=== PATIENT | female | born 1995 | race Caucasian/White ===

== ENCOUNTER → 2019-04-17 17:05 | Outpatient (BNVA) | payer OTHER, SELFPAY | PROVIDERS: Family Provider Nurse Practitioner; PCP Nurse Practitioner; Visit Provider Nurse Practitioner Family | DX: R42 Dizziness and giddiness (principal); R09.89 Other specified symptoms and signs involving the circulatory and respiratory systems | CPT/HCPCS: 80053; 83735; 84443; 85025 ==

== ENCOUNTER → 2020-11-03 16:46 | Outpatient (BNVA) | payer OTHER, SELFPAY | PROVIDERS: Family Provider Nurse Practitioner; PCP Nurse Practitioner; Visit Provider Nurse Practitioner Family | DX: Z00.00 Encounter for general adult medical examination without abnormal findings (principal) | CPT/HCPCS: 86787 ==

== ENCOUNTER → 2021-08-09 14:06 | Outpatient (BNVA) | payer BC, SELFPAY | PROVIDERS: Family Provider Nurse Practitioner; PCP Nurse Practitioner Family; Visit Provider Family Medicine | DX: J02.9 Acute pharyngitis, unspecified (principal) | CPT/HCPCS: 87880 ==

== ENCOUNTER → 2021-11-13 10:39 | Outpatient (BNVA) | payer BC, SELFPAY | PROVIDERS: Family Provider Nurse Practitioner; PCP Nurse Practitioner Family; Visit Provider Family Medicine Adult Medicine | DX: R55 Syncope and collapse (principal); G40.909 Epilepsy, unspecified, not intractable, without status epilepticus; Z98.890 Other specified postprocedural states; Z87.19 Personal history of other diseases of the digestive system; O03.9 Complete or unspecified spontaneous abortion without complication; R42 Dizziness and giddiness | CPT/HCPCS: 80053; 81000; 83036; 84702; 85025 ==

== ENCOUNTER → 2022-06-07 17:22 | Outpatient (BNVA) | payer OTHER, SELFPAY | PROVIDERS: Family Provider Nurse Practitioner; PCP Nurse Practitioner Family; Visit Provider Nurse Practitioner | DX: Z20.2 Contact with and (suspected) exposure to infections with a predominantly sexual mode of transmission (principal) | CPT/HCPCS: 86695; 86696; 87255; 87491; 87591; 87661 ==

== ENCOUNTER → 2022-07-16 09:00 | Outpatient (BNVA) | payer OTHER, SELFPAY | PROVIDERS: Family Provider Nurse Practitioner; PCP Nurse Practitioner Family; Visit Provider Obstetrics & Gynecology | DX: N92.6 Irregular menstruation, unspecified (principal) | CPT/HCPCS: 83036; 83525; 84443 ==

== ENCOUNTER → 2022-08-04 07:48 | Outpatient (BNVA) | payer OTHER, SELFPAY | PROVIDERS: Family Provider Nurse Practitioner; PCP Nurse Practitioner Family; Visit Provider Obstetrics & Gynecology | DX: N97.9 Female infertility, unspecified (principal) | CPT/HCPCS: 76830 ==

== ENCOUNTER → 2022-10-07 13:54 | Outpatient (BNVA) | payer OTHER, SELFPAY | PROVIDERS: Family Provider Nurse Practitioner; PCP Nurse Practitioner Family; Visit Provider Obstetrics & Gynecology | DX: N92.6 Irregular menstruation, unspecified (principal) | CPT/HCPCS: 81025 ==

== ENCOUNTER → 2022-10-08 14:00 | Outpatient (BNVA) | payer OTHER, SELFPAY | PROVIDERS: Family Provider Nurse Practitioner; PCP Nurse Practitioner Family; Visit Provider Obstetrics & Gynecology | DX: O03.9 Complete or unspecified spontaneous abortion without complication (principal); N92.6 Irregular menstruation, unspecified | CPT/HCPCS: 84702 ==

== ENCOUNTER → 2022-10-11 09:05 | Outpatient (BNVA) | payer OTHER, SELFPAY | PROVIDERS: Family Provider Nurse Practitioner; PCP Nurse Practitioner Family; Visit Provider Obstetrics & Gynecology | DX: Z34.91 Encounter for supervision of normal pregnancy, unspecified, first trimester (principal); Z3A.01 Less than 8 weeks gestation of pregnancy | CPT/HCPCS: 76830; 84315 ==

== ENCOUNTER → 2022-11-08 11:20 | Outpatient (BNVA) | payer OTHER, SELFPAY | PROVIDERS: Family Provider Nurse Practitioner; PCP Nurse Practitioner Family; Visit Provider Obstetrics & Gynecology | DX: Z34.00 Encounter for supervision of normal first pregnancy, unspecified trimester (principal) | CPT/HCPCS: 80307; 84315; 85027; 86592; 86762; 86803; 86850; 86900; 87086; 87340; 87806 ==

== ENCOUNTER 2022-11-24 14:53 | Emergency (ER) | payer OTHER, SELFPAY ==
[2022-11-24 15:00] VITALS: BP 120/76; PULSE 83; RESP 16; TEMP 36.7; O2SAT 100; BMI 20.3
[2022-11-24 16:10] LABS: Basophils % 0.2 %; Eosinophils # 0.1 10^3/uL (0.0-0.8); Eosinophils % 0.7 %; Hematocrit 36.7 % (36-47); Lymphocytes # 1.8 10^3/uL (0.8-4.8); Mean Corpuscular HGB Conc 34.1 g/dL (30-55); Mean Corpuscular Hemoglobin 30.4 pg (27-33); Mean Corpuscular Volume 89.3 fl (85-98); Mean Platelet Volume 9.8 fL (7.4-10.4); Monocytes # 0.4 10^3/uL (0.2-0.9); Monocytes % 4.3 %; Neutrophils # 7.49 10^3/uL (1.8-7.7); Neutrophils % 76.4 %; Nucleated Red Blood Cells % 0 %; Platelet Count 221 10^3/cmm (157-399); Red Blood Count 4.11 10^6/uL (3.85-5.65); Red Cell Distribution Width 12.2 % (12.1-15.1)
[2022-11-24 16:25] LABS: Alanine Aminotransferase 13 U/L (0-33); Albumin Level 4.7 g/dL (3.5-5.2); Alkaline Phosphatase 55 U/L (35-105); Anion Gap 13.5 (5-19); Aspartate Amino Transferase 14 U/L (0-32); Blood Urea Nitrogen 10 mg/dL (6-20); Calcium 9.2 mg/dL (8.5-10.5); Carbon Dioxide 26 mmol/L (22-29); Chloride 102 mmol/L (98-107); Glomerular Filtration Rate 191.5 mL/min (90-130); Glucose 88 mg/dL (65-115); Osmolality Calculated 284 mOsm/kg (285-295); Potassium 3.5 mmol/L (3.5-5.1); Sodium 138 mmol/L (136-145); Total Bilirubin 0.2 mg/dL (0.15-1.2); Total Protein 6.7 g/dL (6.6-8.7)
--- NOTE | 2022-11-24 17:10 | USR_ITS ---
PROCEDURE INFORMATION: Exam: US First Trimester, Transabdominal Exam date and time: 11/24/2022 5:22 PM Age: 27 years old Clinical indication: Other: Cramping and abd pain; Gestational age or lmp: 12w 4d; ; Additional info: Abd pain with cramping, 10 weeks preg LABS AND CLINICAL REPORTS: Last menstrual period start date: 08/28/2022 Gestational age (Established): 12 w 4 d Estimated due date (Established): 06/04/2023 TECHNIQUE: Imaging protocol: Real-time transabdominal obstetrical ultrasound of the maternal pelvis and a first trimester , less than 14 weeks 0 days, with image documentation. COMPARISON: US transvaginal [id number] 10/11/2022 9:11 AM FINDINGS: Gestation: There is a single live intrauterine gestation. Breech presentation. Embryonic/ heart rate: 150 bpm Extra-embryonic membranes/Placenta: Unremarkable. Anterior placenta is cm/s is No subchorionic bleed. Amniotic fluid: Amniotic fluid and extra-amniotic fluid is normal for gestational age. BIOMETRY: Not performed on this exam. See prior study report. MATERNAL: Uterus: Uterus measures 8.62 cm x 12.01 cm x 8.92 cm. Cervix: Cervical length measures 3.83 cm. Right ovary/adnexa: Obscured by bowel gas. Left ovary/adnexa: Obscured. Intraperitoneal space: No intraperitoneal free fluid. US/US OB <= 14 weeks fetus [id number] IMPRESSION: heartbeat and activity was noted. No gross abnormalities. Limited exam. See prior study for biometric measurements.
--- NOTE | 2022-11-24 17:13 | W.ED.ABDPA2 ---
HPI - Abdominal Pain General: Chief Complaint: Abdominal Pain Stated Complaint: abd pain 12 weeks preg Time Seen by Provider: 11/24/22 17:08 History of Present Illness: 27-year-old female comes in today with left upper quadrant abdominal pain radiating to the lower part of the abdomen. Patient reports that the pain started this morning. And did have 1 instance of nausea but no vomiting. Patient is approximately 12 weeks . This is patient's second with no live births. Review of Systems General: Reports: 10 or more systems reviewed and unremarkable except in HPI and below GI: Reports: abdominal pain (Left upper quadrant) PFS ED PFSH: Medical History Miscarriage Near syncope Seizure disorder follows with [facility] Neuro Surgical History History of mandibular surgery Hx of hernia repair Family History Family/Other Hypertension Denies family history of Colon cancer Ovarian cancer Diabetes Heart disease Hypercholesteremia Breast cancer Uterine cancer Thyroid disease Stroke Physical Exam Const: COMMON NORMALS: alert HENMT: COMMON NORMALS: normocephalic HEAD & SCALP: normocephalic Neck/C-Spine: COMMON NORMALS: full ROM Resp: COMMON NORMALS: normal respiratory effort and clear to auscultation bilaterally AUSCULTATION: clear to auscultation bilaterally Cardio: COMMON NORMALS: regular rate and regular rhythm RATE: regular rate RHYTHM: regular rhythm GI: AUSCULTATION: Yes normoactive bowel sounds PALPATION: Yes Tenderness to palpation present (GI) Details: LUQ : COMMON NORMALS: Yes no CVA tenderness BLADDER/KIDNEY EXAM: Yes no CVA tenderness Back/Pelvis: COMMON NORMALS: no CVA tenderness and thoracic and lumbar spine normal to inspection Extremity: COMMON NORMALS: no pedal edema Neuro: SENSORIUM/ORIENTATION: Yes alert Skin: COMMON NORMALS: turgor normal GENERAL SKIN EXAM: turgor normal Course Vital Signs: Vital signs: Vital Signs Temperature 98.0 F 11/24/22 15:00 Pulse Rate 83 11/24/22 15:00 Respiratory Rate 16 11/24/22 15:00 Blood Pressure 120/76 11/24/22 15:00 Pulse Oximetry 100 11/24/22 15:00 Oxygen Delivery Me thod Room Air 11/24/22 15:00 MDM - Abdominal Pain Medical Decision Making 27-year-old female comes in with left upper quadrant abdominal pain. On exam abdomen soft with some tenderness in the left upper quadrant. No CVA tenderness is noted. Lungs clear to auscultation. Skin is warm and dry. Vital signs are normal. Differential diagnosis includes threatened , gastritis, nausea and vomiting secondary to , UTI, gastroenteritis, constipation. Ultrasound noted today good heartbeat and activity without any gross abnormalities noted. CBC and CMP were unremarkable. Urinalysis was clean. I suspect the patient might have some gastritis secondary to her . Recommended trial of famotidine for discomfort. Recommend Tylenol and otherwise ice or heat for further pain relief. No signs of severe illness, patient was stable and discharged home with monitoring for worsening symptoms and to return as needed. Patient stated understanding and agreed to plan. Lab Data 11/24/22 15:55 11/24/22 15:55 Labs/Radiology: Radiology Impressions Ultrasound 11/24/22 17:10 IMPRESSION: heartbeat and activity was noted. No gross abnormalities. Limited exam. See prior study for biometric measurements. Laboratory Results WBC 9.80 10^3/uL (3.29-11.43) 11/24/22 15:55 RBC 4.11 10^6/uL (3.85-5.65) 11/24/22 15:55 Hgb 12.50 g/dL (11.27-16.99) 11/24/22 15:55 Hct 36.7 % (36-47) 11/24/22 15:55 MCV 89.3 fl (85-98) 11/24/22 15:55 MCH 30.4 pg (27-33) 11/24/22 15:55 MCHC 34.1 g/dL (30-55) 11/24/22 15:55 RDW 12.2 % (12.1-15.1) 11/24/22 15:55 Plt Count 221 10^3/cmm (157-399) 11/24/22 15:55 MPV 9.8 fL (7.4-10.4) 11/24/22 15:55 Neut % (Auto) 76.4 % 11/24/22 15:55 Lymph % (Auto) 18.0 % 11/24/22 15:55 [place] % (Auto) 4.3 % 11/24/22 15:55 Eos % (Auto) 0.7 % 11/24/22 15:55 Baso % (Auto) 0.2 % 11/24/22 15:55 Neut # (Auto) 7.49 10^3/uL (1.8-7.7) 11/24/22 15:55 Lymph # (Auto) 1.8 10^3/uL (0.8-4.8) 11/24/22 15:55 [place] # (Auto) 0.4 10^3/uL (0.2-0.9) 11/24/22 15:55 Eos # (Auto) 0.1 10^3/uL (0.0-0.8) 11/24/22 15:55 Baso # (Auto) 0.0 10^3/uL (0.0-0.1) 11/24/22 15:55 Nucleated RBC % (auto) 0 % 11/24/22 15:55 Nucleated RBCs # 0.0 /100WBC 11/24/22 15:55 Sodium 138 mmol/L (136-145) 11/24/22 15:55 Potassium 3.5 mmol/L (3.5-5.1) 11/24/22 15:55 Chloride 102 mmol/L (98-107) 11/24/22 15:55 Carbon Dioxide 26 mmol/L (22-29) 11/24/22 15:55 Anion Gap 13.5 (5-19) 11/24/22 15:55 BUN 10 mg/dL (6-20) 11/24/22 15:55 Creatinine 0.4 mg/dL (0.5-0.9) L 11/24/22 15:55 GFR Calculation 191.5 mL/min (90-130) H 11/24/22 15:55 Glucose 88 mg/dL (65-115) 11/24/22 15:55 Calculated Osmolality 284 mOsm/kg (285-295) L 11/24/22 15:55 Calcium 9.2 mg/dL (8.5-10.5) 11/24/22 15:55 Total Bilirubin 0.2 mg/dL (0.15-1.2) 11/24/22 15:55 AST 14 U/L (0-32) 11/24/22 15:55 ALT 13 U/L (0-33) 11/24/22 15:55 Alkaline Phosphatase 55 U/L (35-105) 11/24/22 15:55 Total Protein 6.7 g/dL (6.6-8.7) 11/24/22 15:55 Albumin 4.7 g/dL (3.5-5.2) 11/24/22 15:55 Globulin 2.0 g/dL (1.3-4.6) 11/24/22 15:55 Urine Color Yellow (Yellow) 11/24/22 17:49 Urine Appearance Cloudy (CLEAR) A 11/24/22 17:49 Urine pH 8 (5-7) H 11/24/22 17:49 Ur Specific [place] 1.015 (1.005-1.030) 11/24/22 17:49 Urine Protein Neg (Negative) 11/24/22 17:49 Urine Glucose (UA) Norm (Normal) 11/24/22 17:49 Urine Ketones Negative (Negative) 11/24/22 17:49 Urine Blood Neg (Negative) 11/24/22 17:49 Urine Nitrate Negative (Negative) 11/24/22 17:49 Urine Bilirubin Neg (Negative) 11/24/22 17:49 Prot Sulfosalicylic Acd Negative (Negative) 11/24/22 17:49 Urine Urobilinogen Norm mg/dL (Negative) 11/24/22 17:49 Ur Leukocyte Esterase Negative (Negative) 11/24/22 17:49 Urine RBC 0-4 /hpf (0-2) H 11/24/22 17:49 Urine WBC 0-4 /hpf (0-5) H 11/24/22 17:49 Ur Squamous Epith Cells 0-4 /hpf (0-5) H 11/24/22 17:49 Amorphous Sediment 2+ /hpf 11/24/22 17:49 Urine Bacteria Trace /hpf (NONE) 11/24/22 17:49 Discharge Plan Discharge Patient Disposition: Home Clinical Impression: Abdominal pain in Qualifiers: Trimester: first trimester Qualified Code(s): O26.891 - Other specified related conditions, first trimester Condition: Stable Prescriptions: No Action folic acid 1 mg tablet 1 mg PO DAILY levetiracetam [Keppra XR] 500 mg tablet extended release 24 hr 3,000 mg PO QDAY lamotrigine [Lamictal XR] 200 mg tablet extended release 24hr 400 mg PO QDAY lamotrigine [Lamictal XR] 100 mg tablet extended release 24hr 100 mg PO DAILY fluoxetine [Prozac] 20 mg capsule 20 mg PO DAILY valacyclovir 1 gram tablet 1,000 mg PO TID 7 Days Qty: 21 0RF prenat.vits,carlos,[id number] Tablet 1 tab PO DAILY metformin 500 mg tablet extended release 24 hr 500 mg PO BID Qty: 60 6RF Rx Instructions: Take one tablet daily for a month, then increase to 2 tablets daily. Discharge Orders: Discharge ED (Routine); Ordered 11/24/22 Ordered By: Montana Saini Referrals: Debbie Rivera APN [Primary Care Provider] - Discharge Diet: Usual diet Discharge Activity: Increase activity as tolerated Patient Instructions: Abdominal Pain (ED) Activity Restrictions/Additional Instructions: Drink plenty of water and fluids. Use acetaminophen as needed for pain. Use ice or heat for further pain relief. Increase activity as tolerated. Follow-up with primary care for further instructions. Return to ED for worsening symptoms such as inability to hold fluids down, blood in vomit or stool, fever greater than 100.4, or new concerns. 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
[2022-11-24 18:19] LABS: Add Urine Culture? No; Add Urine Microscopic? YES; Amorphous Sediment Urine 2+ /hpf; Bacteria Urine TRACE /hpf; Bilirubin Urine Neg (Negative); Blood Urine Neg (Negative); Glucose Urine UA Norm (Normal); Ketones Urine Negative (Negative); Leukocyte Esterase Urine Negative (Negative); Nitrate Urine Negative (Negative); Protein Urine Neg (Negative); RBC Urine 0-4 /hpf (0-2); Specific Gravity, Urine 1.015 (1.005-1.030); Squamous Epithelial Cell Urine 0-4 /hpf (0-5); Sulfosalicylic Acid Urine Negative (Negative); Urine Appearance Cloudy (CLEAR); Urine Color Yellow (Yellow); Urobilinogen Urine Norm (Negative); WBC Urine 0-4 /hpf (0-5); pH Urine 8 (5-7)
== END 2022-11-24 18:43 | disposition home or self-care (01) ==
PROVIDERS: Emergency Medicine; Emergency Provider Nurse Practitioner Family; PCP Nurse Practitioner Family
DX: O26.891 Other specified pregnancy related conditions, first trimester (principal); R10.12 Left upper quadrant pain; Z3A.12 12 weeks gestation of pregnancy
CPT/HCPCS: 36415; 76801; 80053; 81001; 84702; 85025; 99284

== ENCOUNTER → 2022-12-20 11:12 | Outpatient (BNVA) | payer OTHER, SELFPAY | PROVIDERS: PCP Nurse Practitioner Family; Visit Provider Nurse Practitioner Women's Health | DX: Z34.00 Encounter for supervision of normal first pregnancy, unspecified trimester (principal) | CPT/HCPCS: 82105; 84315; 87491; 87591 ==

== ENCOUNTER → 2023-01-17 09:27 | Outpatient (BNVA) | payer OTHER, SELFPAY | PROVIDERS: PCP Nurse Practitioner Family; Visit Provider Nurse Practitioner Women's Health | DX: Z34.92 Encounter for supervision of normal pregnancy, unspecified, second trimester (principal); Z3A.22 22 weeks gestation of pregnancy | CPT/HCPCS: 76805 ==

== ENCOUNTER → 2023-02-14 10:41 | Outpatient (BNVA) | payer OTHER, SELFPAY | PROVIDERS: Family Provider Nurse Practitioner; PCP Nurse Practitioner Family; Visit Provider Nurse Practitioner Women's Health | DX: Z34.00 Encounter for supervision of normal first pregnancy, unspecified trimester (principal); Z3A.00 Weeks of gestation of pregnancy not specified | CPT/HCPCS: 82950; 84315; 85025 ==

== ENCOUNTER 2023-02-16 19:49 | Emergency (ER) | payer OTHER, SELFPAY ==
[2023-02-16 19:56] VITALS: BP 130/81; PULSE 76; RESP 16; TEMP 36.6; O2SAT 97; BMI 22.8
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
[2023-02-16 22:38] LABS: Hepatitis A Antibody IgM Non-Reactive (Nonreactive); Hepatitis B Core IgM Non-Reactive (Nonreactive); Hepatitis B Surface Antigen Non-Reactive (Nonreactive); Hepatitis C Virus Antibody Non-Reactive (Nonreactive)
[2023-03-03 10:32] LABS: HIV 1 & 2 Antibody Non-Reactive (Non-Reactiv); HIV 1 & 2 Antigen Non-Reactive (Non-Reactiv)
== END 2023-02-16 20:30 | disposition home or self-care (01) ==
PROVIDERS: Emergency Provider Nurse Practitioner Family; PCP Nurse Practitioner Family
DX: Z77.21 Contact with and (suspected) exposure to potentially hazardous body fluids (principal); Y99.0 Civilian activity done for income or pay; Y08.89XA Assault by other specified means, initial encounter; Y92.239 Unspecified place in hospital as the place of occurrence of the external cause
CPT/HCPCS: 36415; 80074; 87806; 99283

== ENCOUNTER → 2023-04-13 11:52 | Outpatient (BNVA) | payer SELFPAY | PROVIDERS: PCP Nurse Practitioner Family; Visit Provider Obstetrics & Gynecology | DX: Z34.00 Encounter for supervision of normal first pregnancy, unspecified trimester (principal); Z3A.00 Weeks of gestation of pregnancy not specified | CPT/HCPCS: 81000 ==

== ENCOUNTER → 2023-04-19 10:07 | Outpatient (BNVA) | payer OTHER, SELFPAY | PROVIDERS: PCP Nurse Practitioner Family; Visit Provider Obstetrics & Gynecology | DX: Z34.93 Encounter for supervision of normal pregnancy, unspecified, third trimester (principal); Z3A.35 35 weeks gestation of pregnancy | CPT/HCPCS: 76816 ==

== ENCOUNTER → 2023-04-25 08:02 | Outpatient (BNVA) | payer OTHER, SELFPAY | PROVIDERS: PCP Nurse Practitioner Family; Visit Provider Nurse Practitioner Women's Health | DX: Z34.00 Encounter for supervision of normal first pregnancy, unspecified trimester (principal); Z3A.00 Weeks of gestation of pregnancy not specified | CPT/HCPCS: 84315; 87086 ==

== ENCOUNTER → 2023-05-09 08:30 | Outpatient (BNVA) | payer OTHER, SELFPAY | PROVIDERS: PCP Nurse Practitioner Family; Visit Provider Obstetrics & Gynecology | DX: Z34.80 Encounter for supervision of other normal pregnancy, unspecified trimester (principal); Z3A.00 Weeks of gestation of pregnancy not specified | CPT/HCPCS: 84315; 87081 ==

== ENCOUNTER 2023-05-22 18:08 | Outpatient (CLI) | payer OTHER, SELFPAY ==
[2023-05-22 17:58] VITALS: BMI 25.9
[2023-05-22 18:12] VITALS: RESP 16
[2023-05-22 18:35] VITALS: BP 133/89; PULSE 66
[2023-05-22 18:52] VITALS: BP 143/90; PULSE 68
== END 2023-05-22 19:00 | disposition home or self-care (01) ==
LOC: OPOB 18:09 → OBGYN 18:11
PROVIDERS: PCP Nurse Practitioner Family; Visit Provider Obstetrics & Gynecology
DX: O26.899 Other specified pregnancy related conditions, unspecified trimester (principal); Z3A.00 Weeks of gestation of pregnancy not specified; R10.9 Unspecified abdominal pain
CPT/HCPCS: 59025; 99211

== ENCOUNTER 2023-05-27 10:03 | Inpatient (IN) | payer OTHER, SELFPAY ==
[2023-05-27] VITALS (79 sets, daily range): BP systolic 96–147; BP diastolic 56–92; PULSE 56–97; RESP 16–18; TEMP 35.8–36.1; O2SAT 96–99; BMI 25.8
[2023-05-27] MEDS: lactated ringers 1,000 ML 999 ML IV ×2 (10:43→11:57)
[2023-05-27 10:55] LABS: Basophils % 0.2 %; Eosinophils % 0.2 %; Hematocrit 41.4 % (36-47); Lymphocytes # 1.5 10^3/uL (0.8-4.8); Lymphocytes % 11.5 %; Mean Corpuscular HGB Conc 35.7 g/dL (30-55); Mean Corpuscular Hemoglobin 31.4 pg (27-33); Mean Corpuscular Volume 87.7 fl (85-98); Mean Platelet Volume 11.2 fL (7.4-10.4); Monocytes # 0.4 10^3/uL (0.2-0.9); Monocytes % 3.4 %; Neutrophils # 10.56 10^3/uL (1.8-7.7); Neutrophils % 84.1 %; Nucleated Red Blood Cells % 0 %; Platelet Count 180 10^3/cmm (157-399); Red Blood Count 4.72 10^6/uL (3.85-5.65); Red Cell Distribution Width 12.3 % (12.1-15.1); White Blood Count 12.56 10^3/uL (3.29-11.43)
[2023-05-27] MEDS: fentaNYL 50 mcg/mL INJ 2mL IVP (10:58)
[2023-05-27] MEDS: ROPivacaine syringe 100 MG/50 ML SYRINGE 10 MG EPIDURAL (11:49)
--- NOTE | 2023-05-27 11:57 | ANES.PROC ---
Anesthesia Procedures Procedure/Date: 05/27/23 Epidural: Time Out Performed: Yes Consents Signed: Procedure Consent Consent: requested by attending/covering physician, from patient, risks and benefits reviewed and patient agrees to proceed Lumbar Level: L3-L4 Epidural position: sitting Epidural procedure: sterile prep of area, 1% lidocaine to numb the area, 18 g needle, neg for paresthesia, test dose given, 1.5% xylocaine 1:200k epi (5cc), 0.2% Ropivacaine bolus ml (4cc and Fentanyl 100mcg), placed PCEA, no systemic response, sterile dressing applied, L.U.D. no apparent complications and 0.2% Ropiavacaine @ mls/hr (13cc/hour. Pt tolerated well)
--- NOTE | 2023-05-27 12:58 | PM.OPHPUD ---
Labor & Delivery H&P Update Date of Procedure: May 27, 2023 Date H&P Performed: 05/23/23 H&P update information: I have reviewed H&P completed within last 30 days, I have examined patient prior to procedure and Changes to prior documentation as noted here (/90%/-1/VX/IM) Admission Diagnosis:
[2023-05-27] MEDS: oxytocin 30 UNIT/500 ML BAG IV (14:09)
[2023-05-27] MEDS: ROPivacaine syringe 100 MG/50 ML SYRINGE 13 MG EPIDURAL ×2 (15:32→18:40)
[2023-05-27] MEDS: dextrose 5%-lactated ringers 1,000 ML 125 ML IV (18:37)
[2023-05-27] MEDS: ondansetron 2 mg/ML SDV 2 mL 4 MG IVP (19:51)
--- NOTE | 2023-05-27 21:50 | P.PN_ITS ---
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 Subjective 2 Subjective: Interval history: fetus PETTY, +2 station patient has been pushing x more than two hours + maternal exhaustion Vacuum extractor applied mild traction used through two uterine contractions brought head to perineum shoulders delivered easily vigorous male infant cord gases and blood obtained normal placenta and cord second-degree perineal laceration repaired in layers EBL: 400 cc no complications Labor: Station: 0 Amniotic Membrane Status: Ruptured Monitor Mode: External Contraction Pattern: Regular Status: Category I Vitals/I&O/Wt Last Vital Signs Temp 97.9 F 05/28/23 10:26 Pulse 81 05/28/23 10:26 Resp 15 05/28/23 10:26 BP 122/78 05/28/23 10:26 Pulse Ox 95 05/28/23 04:50 O2 Del Method Room Air 05/27/23 10:06 Weight last 48 hrs Weight 170 lb Physical Exam 2 Urinary Catheter Management: Elkins Latex: Cath Placed During This Visit: yes, but has since been removed by the nurse Reason for Continuing Indwelling Catheter: Decision to DC Catheter Urinary Catheter Date of Insertion: 05/27/23 Urinary Catheter Time of Insertion: 12:55 Date Urinary Catheter Removed: 05/27/23 Time Urinary Catheter Discontinued: 18:45 Data 05/28/23 10:40 A&P Assessment and plan (1) Vaginal delivery: vacuum-assisted vaginal delivery (2) Second degree perineal laceration: repaired Attestations 2 Medical Necessity Statement*: patient at term, s/p vaginal delivery Coding Level of Care Code Acute Code for Chg Fwd Diagnoses Vaginal delivery O80 Second degree perineal laceration O70.1 Time Spent (min) 90
--- NOTE | 2023-05-27 21:55 | PM.DELIVERY ---
Delivery Note: Date of delivery: May 27, 2023 Pre-delivery diagnoses: 38 w 6 d active labor Post-delivery diagnoses: 38 w 6 d active labor vacuum-assisted vaginal delivery repair of second-degree perineal laceration Procedure: vacuum-assisted vaginal delivery repair of second-degree perineal laceration Op report anesthesia: Epidural Delivering Physician: Ralf Burnett MD Findings: fetus PETTY, +2 station patient has been pushing x more than two hours + maternal exhaustion Vacuum extractor applied mild traction used through two uterine contractions brought head to perineum shoulders delivered easily vigorous male cord gases and blood obtained normal placenta and cord second-degree perineal laceration repaired in layers EBL: 400 cc no complications Pre-Delivery Course: normal labor course Delivery: vacuum-assisted vaginal delivery Post-Delivery Status: good History History History 2 Term 0 0 Miscarriages/Ectopic 1 Living Children 0 A&P Assessment and plan (1) Vaginal delivery: vacuum-assisted vaginal delivery (2) Second degree perineal laceration: repaired Coding Level of Care Code Acute Code for Chg Fwd Diagnoses Vaginal delivery O80 Second degree perineal laceration O70.1 Time Spent (min) 90
[2023-05-28] VITALS (9 sets, daily range): BP systolic 113–132; BP diastolic 77–82; PULSE 67–100; RESP 15–18; TEMP 36.4–36.9; O2SAT 95–97
[2023-05-28] MEDS: lamoTRIgine 100 mg Tablet 400 MG PO (00:35)
[2023-05-28] MEDS: HYDROcodone-acetaminophen 5-325 mg Tablet PO ×2 (00:49→10:24)
--- NOTE | 2023-05-28 02:36 | PC.NURSE ---
Patient provided with dermoplast, ice pack, and witch diamante pads for perineum pain.
[2023-05-28] MEDS: ibuprofen 800 mg tablet PO ×2 (10:24→15:35)
[2023-05-28] MEDS: prenatal vitamin Capsule 1 CAP PO (10:24)
[2023-05-28] MEDS: docusate sodium 100 mg Capsule PO (10:24)
[2023-05-28 11:03] LABS: Mean Corpuscular HGB Conc 35.3 g/dL (30-55); Mean Corpuscular Hemoglobin 31.6 pg (27-33); Mean Corpuscular Volume 89.5 fl (85-98); Mean Platelet Volume 10.8 fL (7.4-10.4); Platelet Count 147 10^3/cmm (157-399); Red Cell Distribution Width 12.6 % (12.1-15.1); White Blood Count 16.04 10^3/uL (3.29-11.43)
--- NOTE | 2023-05-28 11:50 | P.PN_ITS ---
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 fundus firm Ext: no edema; nontender Urinary Catheter Management: Elkins Latex: Cath Placed During This Visit: yes, but has since been removed by the nurse Reason for Continuing Indwelling Catheter: Decision to DC Catheter Urinary Catheter Date of Insertion: 05/27/23 Urinary Catheter Time of Insertion: 12:55 Date Urinary Catheter Removed: 05/27/23 Time Urinary Catheter Discontinued: 18:45 Data 05/28/23 10:40 A&P Assessment and plan (1) Vaginal delivery: PPD #1 doing well discharge to home today instructions and precautions given call/return if fever, chills, headache, blurry vision, nausea, vomiting, abdominal pain; vaginal bleeding or discharge; shortness of breath, chest pain, leg pains or swelling; inability to void, perineal pain or swelling; feelings of depression or mood changes; thoughts of suicide or harming others; inability to care for baby. f/u in 6 weeks or PRN (2) Second degree perineal laceration: Attestations 2 Medical Necessity Statement*: patient s/p vaginal delivery, plan discharge to home today Coding Level of Care Code Acute Code for Chg Fwd Diagnoses Vaginal delivery O80 Second degree perineal laceration O70.1 Time Spent (min) 20
--- NOTE | 2023-05-28 12:05 | PM.OBGYDC ---
Discharge Providers MEMBER SERVICE SPECIALIST Date of Admission: 05/27/23 10:03 Date of Discharge: 05/28/23 Attending Provider at Admission: Sukhjinder Mcrae MD Attending Provider at Discharge: Ralf Burnett MD Consults: none Primary MEMBER SERVICE SPECIALIST: Ralf Burnett MD Primary Care Provider: Debbie Rivera APN Diagnoses at Discharge Discharge Diagnosis (1) Vaginal delivery: Details from hospital stay: patient admitted with active labor progressed to vaginal delivery with repair of second-degree perineal laceration no complications patient discharged to home on PPD #1 Status: Acute (2) Second degree perineal laceration: Status: Acute Reason for Visit Reason for Visit: contractions, vaginal bleeding Brief History: 28 y.o. SA1 EDC June 04, 2023 admitted with active labor Hospital Course Hospital Course patient admitted with active labor progressed to vaginal delivery with repair of second-degree perineal laceration no complications patient discharged to home on PPD #1 Information Peripartum Data: Delivery Method: Vaginal Laceration description: Perineal - 2nd Degree Episiotomy description: None complications: none Physical Exam Narrative: afebrile, VS normal comfortable, awake, alert Abd: soft, nontender. fundus firm Ext: no edema; nontender Urinary Catheter Management: Elkins Latex: Cath Placed During This Visit: yes, but has since been removed by the nurse Reason for Continuing Indwelling Catheter: Decision to DC Catheter Urinary Catheter Date of Insertion: 05/27/23 Urinary Catheter Time of Insertion: 12:55 Date Urinary Catheter Removed: 05/27/23 Time Urinary Catheter Discontinued: 18:45 History History History 2 Term 0 0 Miscarriages/Ectopic 1 Living Children 0 Discharge Data Studies Completed and Pending Laboratory Results WBC 16.04 10^3/uL (3.29-11.43) H 05/28/23 10:40 RBC 3.80 10^6/uL (3.85-5.65) L 05/28/23 10:40 Hgb 12.00 g/dL (11.27-16.99) 05/28/23 10:40 Hct 34.0 % (36-47) L 05/28/23 10:40 MCV 89.5 fl (85-98) 05/28/23 10:40 MCH 31.6 pg (27-33) 05/28/23 10:40 MCHC 35.3 g/dL (30-55) 05/28/23 10:40 RDW 12.6 % (12.1-15.1) 05/28/23 10:40 Plt Count 147 10^3/cmm (157-399) L 05/28/23 10:40 MPV 10.8 fL (7.4-10.4) H 05/28/23 10:40 Neut % (Auto) 84.1 % 05/27/23 10:30 Lymph % (Auto) 11.5 % 05/27/23 10:30 Jerauld % (Auto) 3.4 % 05/27/23 10:30 Eos % (Auto) 0.2 % 05/27/23 10:30 Baso % (Auto) 0.2 % 05/27/23 10:30 Neut # (Auto) 10.56 10^3/uL (1.8-7.7) H 05/27/23 10:30 Lymph # (Auto) 1.5 10^3/uL (0.8-4.8) 05/27/23 10:30 Jerauld # (Auto) 0.4 10^3/uL (0.2-0.9) 05/27/23 10:30 Eos # (Auto) 0.0 10^3/uL (0.0-0.8) 05/27/23 10:30 Baso # (Auto) 0.0 10^3/uL (0.0-0.1) 05/27/23 10:30 Nucleated RBC % (auto) 0 % 05/27/23 10:30 Nucleated RBCs # 0.0 /100WBC 05/27/23 10:30 Blood Type A Positive 05/27/23 10:30 Rho(D) Type Rh positive 05/27/23 10:30 Antibody Screen Negative 05/27/23 10:30 Procedures Performed vaginal delivery repair of second-degree perineal laceration Vitals Last Vital Signs Temp 98.5 F 05/28/23 23:10 Pulse 94 05/28/23 23:10 Resp 16 05/28/23 23:10 BP 113/79 05/28/23 23:10 Pulse Ox 97 05/28/23 23:10 O2 Del Method Room Air 05/27/23 10:06 Results Labs OB ([facility]): Obstetrics US 04/19/23 Blood Type A Positive 05/27/23 Antibody Screen Negative 05/27/23 Hct 34.0 % (36-47) L 05/28/23 Hgb 12.00 g/dL (11.27-16.99) 05/28/23 Rho(D) Type Rh positive 05/27/23 Plt Count 147 10^3/cmm (157-399) L 05/28/23 Hep Bs Antigen Non-reactive (Nonreactive) 02/16/23 Hep B Core IgM Ab Non-reactive (Nonreactive) 02/16/23 Hep Bs Antibody 3.5 (11.5-1000) L 10/28/21 Hepatitis C Antibody Non-reactive (Nonreactive) 02/16/23 Rubella IgG Antibody 84.1 IU/mL (0.0-10.0) H 11/08/22 RPR Nonreactive (Nonreactive) 11/08/22 HIV 1&2 Ab & HIV 1 Ag Non-reactive (Non-Reactiv) 02/16/23 TSH 1.59 uIU/mL (0.27-4.20) 07/16/22 C.trachomatis RNA (TMA) Not detected (NOT DETECTED) 12/20/22 N.gonorrhoeae RNA (TMA) Not detected (NOT DETECTED) 12/20/22 Chlamydia/GC Comment See note 12/20/22 Cystic Fibrosis Screen Negative 11/08/22 Gest Glucose Tolerance 130 mg/dL (70-139) 02/14/23 Hemoglobin A1c 4.4 % (4.0-6.0) 07/16/22 VZV IgG Antibody 1488.00 index 10/28/21 Ser , Semi-Qnt 00897.00 mIU/mL 11/24/22 HCG, Qual Positive (Negative) H 10/07/22 Urine Opiates Screen Negative ng/mL (Negative) 11/08/22 Ur Barbiturates Screen Negative ng/mL (Negative) 11/08/22 Ur Phencyclidine Scrn Negative ng/mL (Negative) 11/08/22 Ur Amphetamines Screen Negative ng/mL (Negative) 11/08/22 U Benzodiazepines Scrn Negative ng/mL (Negative) 11/08/22 Urine Cocaine Screen Negative ng/mL (Negative) 11/08/22 U Marijuana (THC) Screen Negative ng/mL (Negative) 11/08/22 Micro Urine Specimen 04/25/23 Discharge Plan Discharge Patient Disposition: Home Condition: Stable Prescriptions: New Percocet 5-325 mg tablet 1 tab PO BID PRN (Reason: pain) Qty: 14 0RF Continued folic acid 1 mg tablet 1 mg PO DAILY lamotrigine [Lamictal XR] 200 mg tablet extended release 24hr 400 mg PO QDAY lamotrigine [Lamictal XR] 100 mg tablet extended release 24hr 100 mg PO DAILY fluoxetine [Prozac] 20 mg capsule 20 mg PO DAILY prenat.vits,carlos,idp-zssc-eeuqd Tablet 1 tab PO DAILY levetiracetam [Keppra XR] 500 mg Tablet Extended Release 24 Hr 500 mg PO DAILY levetiracetam [Keppra XR] 750 mg Tablet Extended Release 24 Hr 3,750 mg PO DAILY Discontinued acyclovir 400 mg tablet 400 mg PO DAILY Qty: 30 1RF Discharge Orders: Discharge Order (Routine); Ordered 05/28/23 Ordered By: Ralf Burnett Discharge Diet: Usual diet Discharge Activity: Increase activity as tolerated Patient Instructions: Oxycodone/Acetaminophen (By mouth) (Percocet, Roxicet), Depression (DC), Opioid Safety (DC), Preeclampsia and Eclampsia After Delivery (GEN), Hemorrhage (DC), OB Discharge Report, OB Food/Drug Interaction Guide, Opioid Safety, OB Home Care, OB Vaginal Deliveries - [facility], Abnormal Bleeding Discharge Attestations MEMBER SERVICE SPECIALIST Time Spent in Discharge Care*: less than 30 min Coding Level of Care Code Acute Code for Chg Fwd Diagnoses Vaginal delivery O80 Second degree perineal laceration O70.1 Time Spent (min) 20
--- NOTE | 2023-05-29 08:06 | ANE.PACU2 ---
Inpatient post-anesthesia follow up: Airway intact: Yes Vital signs: Temperature 98.5 F Pulse Rate 94 Respiratory Rate 16 Blood Pressure 113/79 Pulse Oximetry 97 Oxygen Delivery Me thod Room Air Oxygen Flow Rate Fraction of Inspir ed Oxygen Mental status: Baseline Epidural Start/End: Epidural Start Date: 05/27/23 Epidural Start Time: 11:40 Epidural End Date: 05/27/23 Epidural End Time: 22:25
== END 2023-05-28 23:10 | disposition home or self-care (01) | DRG 807 ==
LOC: OPOB 10:38 → OBGYN 10:38
PROVIDERS: Obstetrics & Gynecology; Admitting Provider Obstetrics & Gynecology; PCP Nurse Practitioner Family; Visit Provider Obstetrics & Gynecology
DX: O70.1 Second degree perineal laceration during delivery (principal); Z37.0 Single live birth; O75.81 Maternal exhaustion complicating labor and delivery; Z3A.38 38 weeks gestation of pregnancy
CPT/HCPCS: 36415; 51702; 59025; 59409; 85025; 85027; 86850; 86900; 96374; 99211; J2405; J2590; J2795; J3010; J7120; J7121

== ENCOUNTER → 2024-07-23 16:04 | Outpatient (BNVA) | payer OTHER, SELFPAY | PROVIDERS: PCP Nurse Practitioner Family; Visit Provider Obstetrics & Gynecology | DX: Z01.419 Encounter for gynecological examination (general) (routine) without abnormal findings (principal); N91.2 Amenorrhea, unspecified | CPT/HCPCS: 81025; 87624 ==

== ENCOUNTER 2025-01-30 23:28 | Outpatient (CLI) | payer OTHER, SELFPAY ==
[2025-01-30 23:32] VITALS: BP 106/81; PULSE 62; RESP 16; TEMP 36.6; O2SAT 100; BMI 21.2
--- OUTSIDE RECORDS SUMMARY | 2025-01-30 23:40 | XMS_ITS | Patient Health Record ---
Author Organization [facility] Address [address] [place] [address] Care Team Providers Care Television Actor Name Role Phone [facility] Primary Care Provider [facility] Unavailable Unavailable Allergies No Known Allergies Reason For Referral No Information Medications Medication SIG (Take, Route, Frequency, Duration) Notes Start Date End Date Status lamoTRIgine ER 100 mg Tablet Extended Release 24 Hour TAKE ONE TABLET BY MOUTH DAILY; Duration: 30 Active Spironolactone 50 mg Tablet TAKE ONE TABLET BY MOUTH TWICE DAILY; Duration: 30 Active levETIRAcetam ER 750 mg Tablet Extended Release 24 Hour TAKE FOUR TABLETS BY MOUTH DAILY; Duration: 30 Active lamoTRIgine ER 200 MG Tablet Extended Release 24 Hour 2 tabs Orally Once a day at night; Duration: 30 days Active valACYclovir HCl 1 GM Tablet 1 tablet Orally twice a day prn as directed; Duration: 3 days Not-Taking M- Plus 27-1 MG Tablet TAKE ONE TABLET BY MOUTH DAILY Orally Once a day; Duration: 30 days Active FLUoxetine HCl 20 mg Capsule TAKE ONE CAPSULE BY MOUTH DAILY; Duration: 30 days Active Folic Acid 1 mg Tablet TAKE ONE TABLET B Y MOUTH DAILY; Duration: 30 days Active Social History Tobacco Use: Social History Observation Description Date Details (start date - stop date) Never Smoker NA - NA Social History Depression Screening Social Info Question Answer Notes PHQ-9 Little interest or p catracho in doing things Nearly every day Feeling down, depressed, or hopeless Nearly ever y day Trouble falling or staying a sleep, or sleeping too much More than half the days Feeling tired or having little energy Nearly jennifer ry day Poor appetite or overeating Several days Feeling bad about yourself, or that you are a failure, or have let yourself or your family down Several days Trouble concentrating on thi ngs, such as reading the newspaper or watching television Nearly every day Moving or speaking so slowly that other people could have noticed. Or the opposite ? being so fidgety or restless that you have been moving around a lot more than usual Not at all Thoughts that you would be b jamir off , or of hurting yourself in some way Several days (Consider Suicide Assessment Risk) Total Score 17 Interpretation Moderately severe depression Drugs/Alcohol: Social Info Question Answer Notes Alcohol Screen (Audit-C) Did you have a drink containing alcohol in the past year? Yes How often did you have a drink containing alcohol in the past year? Monthly or less (1 point) How many drinks did you have on a typical day when you were drinking in the past year? 1 or 2 drinks (0 point) How often did you have 6 or more drinks on one occasion in the past year? Never (0 point) Points 1 Interpretation Negative Drugs Have you used drugs other than those for medical reasons in the past 12 months? No Tobacco Use: Social Info Question Answer Notes xTobacco Use/Smoking Are you a nonsmoker Additional Details Category Social Info Options Details Drugs/Alcohol: Do you smoke marijuana? De nies Do you drink alcohol? Yes Section Notes: 06/29/2022 PHQ-9 06/29/2022 PHQ-9 Problems Problem Type SNOMED Code ICD Code Onset Dates Problem Status W/U Status Risk Notes Problem Depression (537383343) Other depression (F32.89) Active confirmed Problem Seizure disorder (073247760) Seizure disorder (G40.909) Active confirmed Plan Of Treatment No Information Insurance Providers Payer Name Payer Address Payer Phone Subscriber Number Group Number Insured Name Patient Relationship to Insured Coverage Start Date Coverage End Date [facility] [address] [place] [phone] [id number] Bailey Richards Self - patient is the insured Medical (General) History Medical History History ICD Code epilepsy Surgical History Surgery Date(Month/Year) jaw wiring hernia repair Hospitalization History Reason Date(Month/Year) surgical history
--- OUTSIDE RECORDS SUMMARY | 2025-01-30 23:40 | XMS_ITS | Data Portability ---
Author Organization [facility] [employer] [facility] Address [address] [address] Assessment No assessment recorded. Plan of Treatment Reminders Order Date Submit Date Provider Last Modified By Organization Details Last Modified Time Details Appointments None record ed. Lab None record ed. Referral None record ed. Procedures None record ed. Surgeries None record ed. Imaging None record ed. Medication Orders None record ed. Patient TargetsNo targets recorded. Patient InstructionsNo instructions recorded. Reason for Referral None Reported. Problems Name Problem SNOMED Code Status Onset Date Resolution Date Notes Provider Name and Address Organization Details Recorded Time Hernia of abdominal wall Active 2019 Abdominal hernia; 01/25/2020 11:33AM by Mimi Conrad, Office Visit; Promoted; acuity set as *; Not Available [facility] 3 03:18:10 Epilepsy [id number] Active 2019 Epilepsy; 01/25/2020 11:33AM by Mimi Conrad, Office Visit; Promoted; acuity set as *; Not Available [facility] 3 03:18:10 Problem Notes None recorded. Medical Equipment None Reported. Medications Name Sig Start Date Stop Date Status Note LastModified by Organization Details LastModified Time montelukast 10 mg tablet daily 2016 active Recorded 0 11:34AM by Mimi Conrad, Office Visit; Refill Quantity: 30; Tablet; Not Available Not Available Not Available fluticasone propionate 50 mcg/actuati on nasal spray,suspe nsion daily 2016 active each nostril; Recorded 0 11:34AM by Mimi Conrad, Office Visit; Refill Quantity: 1; Bottle; Not Available Not Available Not Available Tri-Sprinte c (28) 0.18 mg(7)/0.215 mg(7)/0.25 mg(7)-0.035 mg tablet daily active 0; Recorded 0 11:34AM by Mimi Conrad, Office Visit; Not Available Not Available Not Available Mucinex D two times daily 2016 active Recorded 0 11:34AM by Mimi Conrad, Office Visit; Refill Quantity: 20; Tablet; Not Available Not Available Not Available Keppra XR at bedtime active 0; Recorded 0 11:34AM by Mimi Conrad, Office Visit; Not Available Not Available Not Available Vitals None Recorded Social History None recorded. Functional Status None recorded. Mental Status None recorded. Family History Nothing Reported. Medical History No medical history recorded. Gynecological HistoryNo gynecological history recorded. Obstetrics History GPAL:G 0 P 0 0 0 0 Past Encounters Encounter ID Performer Location Encounter Start Date Encounter Closed Date Diagnosis/Indication Diagnosis SNOMED-CT Code Diagnosis ICD10 Code Diagnosis IMO Codes Diagnosis Note [id number] Demetrio Craig MD [facility] [address] [place] [address] 04/07/2023 15:27:20 04/07/2023 17:21:27 Health Concerns Section Related Observation LastModified by Organization Detai ls LastModified Time None Recorded Concern Status LastModified by Organization Details LastModified Time None Recorded Advance Directives Directive None Recorded Payers Insurance Date Sequence Insurance Name Policy Number Policy Garcia Covered Member ID Garcia Member ID Guarantor Name 04/05/2023 1 [facility] Bailey Richards [id number] Bailey Richards OBGyn Episode No OBEpisode recorded.
--- OUTSIDE RECORDS SUMMARY | 2025-01-30 23:40 | XMS_ITS | Clinical Summary ---
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 10 Tablet 1 0 Active FLUoxetine (PROzac) 20 mg capsule Take 20 mg by mouth daily. Active levETIRAcetam (Keppra XR) 500 mg Extended Release 24 hour tablet Take 1 Tablet (500 mg) by mouth daily. 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) 10/31/2024 External Device Data [facility] ABSTRACTION Provider, Abstract 10/30/2024 External Device Data [facility] ABSTRACTION Provider, Abstract from Last 3 Months Social History Tobacco Use Types Packs/Day Years Used Date Smoking Tobacco: Never Smokeless Tobacco: Never Tobacco Cessation:Counseling Given: Not Answered Alcohol Use Standard Drinks/Week Comments Not Currently 0 (1 standard drink = 0.6 oz pur e alcohol) Comments Yes Sex and Gender Information Value Date Recorded Sex Assigned at Female 12/28/2023 1:34 PM CDT Legal Sex Female 3:07 AM [employer] Gender Identity Female 12/28/2023 1:34 PM CDT Sexual Orientation Straight 12/28/2023 1: 34 PM CDT Last Filed Vital Signs Vital Sign Reading Time Taken Comments Blood Pressure 118/68 10/12/2024 12:13 PM CDT Pulse 54 10/12/2024 12:13 PM CDT Temperature 37.1 C (98.8 F) 01/16/2019 4:10 PM CDT Respiratory Rate 17 01/16/2019 4:10 PM CDT Oxygen Saturation 99% 10/12/2024 12:13 PM CDT Inhaled Oxygen Concentration - - Weight 62.1 kg (137 lb) 10/12/2024 12:13 PM CDT Height 172.7 cm (5' 8 ) 10/12/2024 12:13 PM CDT Body Mass Index 20.83 10/12/2024 12:13 PM CDT Plan of Treatment Upcoming Encounters Date Type Department Care Team (Late st Contact Info) Description 10/14/2025 12:30 PM CDT Office Visit [facility] [place] [address] [place] [address] Guadalupe Porras MD [address] [place] [address] Health Maintenance Due Date Last Done Comments DTAP/TDAP/TD VACCINES (3 - Tdap) 2014 07/07/18 96, 1995 CERVICAL CANCER SCREENING 02/22/2016 HPV/Cotest (21-29) 02/22/2016 PAP SMEAR 02/22/2016 HPV VACCINES (1 - 3-dose SCD M series) 2022 INFLUENZA VACCINE (#1) 2024 COVID-19 Vaccine (4 - 2024-2 6 season) 2024 04/05/2021, 04/16/2020, 03/18/2020 HPV/Cotest (30-65) 2025 RSV VACCINE (60+ or ) (1 - 1-dose 75+ series) 2070 HEPATITIS B VACCINES Completed 1995, 1995, 1995 Insurance [place] [id number] Care Teams Sleeve Turner Relationship Specialty Start Date End Date Breanna Preciado NP [address] [place] [phone] PCP - General NURSE PRACTITIONER 07/07/17
--- NOTE | 2025-01-30 23:52 | ECG_ITS ---
[facility] 2025[facility]31 Pat Name: Bailey Richards Department: Room: Gender: Female Electrical Tester Battery: : 1995 Requested By: Loretta Hernandez Order Number: [id number] Kay MD: Jami Hearn M.D. Measurements Intervals [place] Rate: 62 P: 49 [place]: 133 QRS: 97 QRSD: 102 T: 64 QT: 429 QTc: 436 Interpretive Statements SINUS RHYTHM BORDERLINE RIGHT AXIS DEVIATION [QRS AXIS > 90] No previous ECG available for comparison Electronically Signed On 02-02-2025 13:02:18 MACHINE SAND MIXER by Jami Hearn M.D. [email or web address]
[2025-01-31] VITALS (32 sets, daily range): BP systolic 79–115; BP diastolic 37–76; PULSE 57–82; RESP 14–18; TEMP 36.6–37.4; O2SAT 98–100
--- NOTE | 2025-01-31 00:17 | USR_ITS ---
PROCEDURE INFORMATION: Exam: US Duplex Artery or Vein of the Abdominal and/or Reproductive Organs, Limited Ovaries Exam date and time: 01/31/2025 1:04 AM Age: 29 years old Clinical indication: Menstruation abnormalities; Excessive menstruation; Patient had miscarriage about 2 weeks ago. Now anemic, weak. Non-stop vaginal bleeding. ; Additional info: +, bleeding TECHNIQUE: Imaging protocol: Real-time duplex ultrasound scan of the arterial or venous flow with washing[place] scale, color Doppler flow and spectral waveform analysis with image documentation. Limited duplex exam focused on the ovaries. Duplex exam was performed to evaluate for torsion and other vascular conditions. COMPARISON: [place] [id number] 04/19/2023 10:15 AM FINDINGS: Right ovary/adnexa: Normal arterial or venous Doppler waveforms in the ovary. No ovarian torsion. Left ovary/adnexa: Normal arterial or venous Doppler waveforms in the ovary. No ovarian torsion. PROCEDURE INFORMATION: Exam: US Pelvis Transabdominal, Complete, and US Pelvis Transvaginal, Non-obstetric Exam date and time: 01/31/2025 1:04 AM Age: 29 years old Clinical indication: Menstruation abnormalities; Excessive menstruation; Patient had miscarriage about 2 weeks ago. Now anemic, weak. Non-stop vaginal bleeding. ; Additional info: +, bleeding TECHNIQUE: Imaging protocol: Real-time complete transabdominal and transvaginal pelvic ultrasound (non-obstetric) with image documentation. Transvaginal imaging was used for better evaluation of the endometrium, adnexa, and/or cervix. COMPARISON: [place] [id number] 04/19/2023 10:15 AM FINDINGS: Uterus: The uterus is retroflexed. The uterus measures 9.8 x 5.4 x 5.0 cm. The endometrial bilayer measures 10 mm. Anechoic fluid is seen within the endometrial canal heterogeneously echoic debris is additionally noted in the endometrial canal. No evidence of endoluminal mass. No evidence of endometrial hyperemia. Right ovary/adnexa: The right ovary measures 2.5 x 2.2 x 1.2 cm with a volume of 4 mL. Confirmed right ovarian blood flow. Normal arterial inflow and spectral sonography. Left ovary/adnexa: The left ovary measures 3.9 x 2.3 x 3.6 cm with a volume of 17 mL. Confirmed left ovarian blood flow. Normal arterial inflow on spectral sonography. Intraperitoneal space: Small volume simple attenuating free pelvic fluid is noted. Urinary bladder: Normal. Other findings: Physiologic follicles are seen in both adnexa. No adnexal mass is present. US/US pelvic complete* [id number] IMPRESSION: Normal duplex of the ovaries. No evidence of ovarian torsion. IMPRESSION: 1. No evidence of retained products of conception. 2. Free fluid and likely blood product within the endometrial canal, corresponding with history of vaginal bleeding. 3. Normal arterial blood flow confirmed to both ovaries. No evidence of torsion.
--- NOTE | 2025-01-31 00:18 | W.ED.GENADLT ---
HPI - General Adult General: Chief complaint: Vaginal Bleeding Stated complaint: post miscarrige. large clots light headed Time Seen by Provider: 01/30/25 23:43 History of Present Illness: Patient is a 29-year-old female with a past medical history significant for epilepsy presents with a chief complaint of vaginal bleeding. Her last menstrual cycle was in October, she reports positive tests and has had a confirmed at her doctor's office. Patient states that approximately 10 days ago, she started experiencing lower abdomen cramping and vaginal bleeding. Patient states that the bleeding has become severe today and since 19:00 she has changed 9 pads and has passed large blood clots. She has felt nauseated and vomited once. She states she has low abd pain. No fever, shortness of breath, chest pain but she states that she has been feeling lightheaded especially with standing. No syncope. She has a history of hernia repair. Related Data Home Medications ?Medication ?Instructions ?Recorded ?Confirmed lamotrigine 200 mg tablet,extended 400 mg PO QDAY 04/17/19 07/23/24 release 24 hr (Lamictal XR) folic acid 1 mg tablet 1 mg PO DAILY 11/03/20 07/23/24 lamotrigine 100 mg tablet,extended 100 mg PO DAILY 11/13/21 07/23/24 release 24 hr (Lamictal XR) levetiracetam 500 mg 500 mg PO DAILY 05/22/23 07/23/24 tablet,extended release 24 hr (Keppra XR) levetiracetam 750 mg 3,750 mg PO DAILY 05/22/23 07/23/24 tablet,extended release 24 hr (Keppra XR) Previous Rx's ?Medication ?Instructions ?Recorded fluoxetine 20 mg capsule (Prozac) 20 mg PO DAILY #30 caps 12/03/24 ferrous sulfate 325 mg (65 mg 325 mg PO DAILY #30 tabs 01/31/25 iron) tablet Allergies Allergy/AdvReac Type Severity Reaction Status Date / Time No Known Allergies Allergy Verified 07/23/24 15:31 [facility] PFS: Medical History (Updated 01/31/25 @ 03:20 by Loretta Hernandez MD) Second degree perineal laceration Vaginal delivery Miscarriage Seizure disorder follows with [facility] Near syncope Surgical History History of mandibular surgery Hx of hernia repair Family History Family/Other Hypertension Denies family history of Colon cancer Ovarian cancer Diabetes Heart disease Hypercholesteremia Breast cancer Uterine cancer Thyroid disease Stroke Social History Smoking and tobacco/nicotine status: never used tobacco/nicotine Physical Exam Narrative: EXAM NARRATIVE: Vital signs were reviewed. Patient is alert and oriented. Patient is breathing comfortably, no increased WOB or accessory muscle use. SpO2 is above 95% on RA. Patient has clear lungs b/l, no rhonchi, wheezing or crackles. No hypotension or tachycardia. Abdomen is soft, nondistended and nontender. Patient is moving all extremities, no deformity or gross injury. No lower extremity edema or asymmetry. Course Vital Signs: Vital signs: Vital Signs Temperature 97.8 F 01/30/25 23:32 Pulse Rate 67 01/31/25 02:58 Respiratory Rate 16 01/31/25 01:02 Blood Pressure 100/56 01/31/25 02:58 Pulse Oximetry 99 01/31/25 02:58 Oxygen Delivery Me thod Room Air 01/31/25 01:08 MDM - General Adult Medical Decision Making 19-year-old female with positive test at home, LMP in October presents with a chief complaint of vaginal bleeding and lower abdomen pain. Differential diagnosis includes, but is not limited to, menstrual cycle, spontaneous miscarriage, ectopic , anemia, life-threatening hemorrhage, other. On exam she is helically stable. She was evaluate CBC, BMP, beta-hCG, typen and screen, EKG, pelvic ultrasound. She was treated for pain with IV morphine and IV zofran. After morphine, patient became transiently hypotensive and was caught prior to collapsing. Patient's blood pressure improved after fluids. Lab work reveals that she has a normal white blood cell count. Patient has a decrease hemoglobin from previous to 10.3 which is approximately 2 point drop. While in the emergency department, her bleeding abated and she is only changed 2 pads while she has been here. Patient does not have any actionable electrolyte abnormalities, has normal kidney function. Patient has a beta hCG of 5115 and US shows: US transvaginal: IMPRESSION: 1. No evidence of retained products of conception. 2. Free fluid and likely blood product within the endometrial canal, corresponding with history of vaginal bleeding. 3. Normal arterial blood flow confirmed to both ovaries. No evidence of torsion. There is no ectopic , no retained products of conception. She is stable for outpatient f/u. She has an cabin agent with whom she can closely f/u. Patient was counseled on supportive care at home, given return precautions and discharged in stable condition with recommendation for outpatient follow-up with primary care nurse or doctor. Lab Data 01/31/25 00:15 01/31/25 02:24 Radiology Impressions Pelvis Ultrasound 01/31/25 00:17 IMPRESSION: Normal duplex of the ovaries. No evidence of ovarian torsion. IMPRESSION: 1. No evidence of retained products of conception. 2. Free fluid and likely blood product within the endometrial canal, corresponding with history of vaginal bleeding. 3. Normal arterial blood flow confirmed to both ovaries. No evidence of torsion. Laboratory Results WBC 11.34 10^3/uL (3.29-11.43) 01/31/25 00:15 RBC 3.53 10^6/uL (3.85-5.65) L 01/31/25 00:15 Hgb 10.30 g/dL (11.27-16.99) L 01/31/25 00:15 Hct 33.4 % (36-47) L 01/31/25 00:15 MCV 94.6 fl (85-98) 01/31/25 00:15 MCH 29.2 pg (27-33) 01/31/25 00:15 MCHC 30.8 g/dL (30-55) 01/31/25 00:15 RDW 11.9 % (12.1-15.1) L 01/31/25 00:15 Plt Count 154 10^3/cmm (157-399) L 01/31/25 00:15 MPV 11.3 fL (7.4-10.4) H 01/31/25 00:15 Neut % (Auto) 80.2 % 01/31/25 00:15 Lymph % (Auto) 14.6 % 01/31/25 00:15 [place] % (Auto) 3.7 % 01/31/25 00:15 Eos % (Auto) 0.7 % 01/31/25 00:15 Baso % (Auto) 0.4 % 01/31/25 00:15 Neut # (Auto) 9.10 10^3/uL (1.8-7.7) H 01/31/25 00:15 Lymph # (Auto) 1.7 10^3/uL (0.8-4.8) 01/31/25 00:15 [place] # (Auto) 0.4 10^3/uL (0.2-0.9) 01/31/25 00:15 Eos # (Auto) 0.1 10^3/uL (0.0-0.8) 01/31/25 00:15 Baso # (Auto) 0.1 10^3/uL (0.0-0.1) 01/31/25 00:15 Nucleated RBC % (auto) 0 % 01/31/25 00:15 Nucleated RBCs # 0.0 /100WBC 01/31/25 00:15 Sodium 138 mmol/L (136-145) 01/31/25 02:24 Potassium 3.6 mmol/L (3.5-5.1) 01/31/25 02:24 Chloride 104 mmol/L (98-107) 01/31/25 02:24 Carbon Dioxide 23 mmol/L (22-29) 01/31/25 02:24 Anion Gap 14.6 (5-19) 01/31/25 02:24 BUN 11 mg/dL (6-20) 01/31/25 02:24 Creatinine 0.5 mg/dL (0.5-0.9) 01/31/25 02:24 GFR Calculation 145.9 mL/min (90-130) H 01/31/25 02:24 Glucose 110 mg/dL (65-115) 01/31/25 02:24 Calculated Osmolality 286 mOsm/kg (285-295) 01/31/25 02:24 Calcium 8.6 mg/dL (8.5-10.5) 01/31/25 02:24 Ser , Semi-Qnt 5115.00 mIU/mL 01/31/25 02:24 Blood Type A Positive 01/31/25 02:24 Rho(D) Type Rh positive 01/31/25 02:24 All radiology interpretation(s) finalized by discharge Discharge Plan Discharge Patient Disposition: Home Clinical Impression: Vaginal bleeding, Miscarriage Anemia Qualifiers: Anemia type: unspecified type Qualified Code(s): D64.9 - Anemia, unspecified Condition: Stable Prescriptions: New ferrous sulfate 325 mg (65 mg iron) tablet 325 mg PO DAILY Qty: 30 0RF No Action folic acid 1 mg tablet 1 mg PO DAILY lamotrigine [Lamictal XR] 200 mg tablet extended release 24hr 400 mg PO QDAY lamotrigine [Lamictal XR] 100 mg tablet extended release 24hr 100 mg PO DAILY fluoxetine [Prozac] 20 mg capsule 20 mg PO DAILY Qty: 30 0RF levetiracetam [Keppra XR] 500 mg Tablet Extended Release 24 Hr 500 mg PO DAILY levetiracetam [Keppra XR] 750 mg Tablet Extended Release 24 Hr 3,750 mg PO DAILY Discharge Orders: Discharge ED (Routine); Ordered 01/31/25 Ordered By: Loretta Hernandez Referrals: Tiffany Hooks FNP [Primary Care Provider, Family Practice] Patient Instructions: Opioid Safety, Pain Management, Patient Portal & Felicity Instructions, Miscarriage (ED), Dizziness Activity Restrictions/Additional Instructions: Today, your hemoglobin and hematocrit are 10.3/33.4. Your beta HCG is 5115. Please share these results with your doctor. Start taking an iron supplement daily. Please continue to monitor your condition closely at home. Take 500-1000mg every six hours for pain and inflammation. If your condition worsens or additional concerns arise, please return promptly to the emergency department for reassessment. Follow up with your cabin agent within 48 hours, by Tuesday at the latest. Please get additional rest. Print Language: Icelandic Coding Level of Care Code ED Hand Sewer Shoes for Finesse Montero
[2025-01-31 00:24] LABS: Hematocrit 33.4 % (36-47); Hemoglobin 10.30 g/dL (11.27-16.99); Mean Corpuscular HGB Conc 30.8 g/dL (30-55); Mean Corpuscular Hemoglobin 29.2 pg (27-33); Mean Corpuscular Volume 94.6 fl (85-98); Nucleated Red Blood Cells % 0 %; Platelet Count 154 10^3/cmm (157-399); Red Blood Count 3.53 10^6/uL (3.85-5.65); White Blood Count 11.34 10^3/uL (3.29-11.43)
[2025-01-31] MEDS: ondansetron 2 mg/ML SDV 2 mL 4 MG IVP (01:00)
[2025-01-31] MEDS: morphine 4 mg/mL SDV 1 mL IVP (01:02)
--- NOTE | 2025-01-31 01:30 | PC.NURSE ---
Pt had a syncopal episoide after going to the restroom. Mom was in the bathroom with pt. This nurse was outside the door. When she came out of the bathroom she began to get weak. Mom and this nurse assisted the pt to the floor in a seated position. This nurse and Dedra HU got her back to bed. notified.
[2025-01-31 02:59] LABS: Anion Gap 14.6 (5-19); Blood Urea Nitrogen 11 mg/dL (6-20); Calcium 8.6 mg/dL (8.5-10.5); Carbon Dioxide 23 mmol/L (22-29); Chloride 104 mmol/L (98-107); Creatinine Clr Calc Pharmacy 167.0551; Glucose 110 mg/dL (65-115); Osmolality Calculated 286 mOsm/kg (285-295); Potassium 3.6 mmol/L (3.5-5.1); Sodium 138 mmol/L (136-145)
[2025-01-31 04:50] LABS: Hematocrit 26.0 % (36-47); Hemoglobin 8.60 g/dL (11.27-16.99); Mean Corpuscular HGB Conc 33.1 g/dL (30-55); Mean Corpuscular Hemoglobin 29.0 pg (27-33); Mean Corpuscular Volume 87.5 fl (85-98); Nucleated Red Blood Cells % 0 %; Platelet Count 218 10^3/cmm (157-399); Red Blood Count 2.97 10^6/uL (3.85-5.65); White Blood Count 8.28 10^3/uL (3.29-11.43)
--- NOTE | 2025-01-31 05:28 | PC.NURSE ---
Upon discharge pts blood pressure was 79/37. notified. Orthostatics obtained as well as a new H&H.
--- NOTE | 2025-01-31 05:58 | PC.NURSE ---
RN AT BEDSIDE AT THIS TIME ASSESSING PATIENT BLEEDING. PATIENT REPORTS SHE HAD PUT THE CURRENT PAD ON AFTER HER SYNCOPAL EPISODE IN THE [place] [id number]. THIS RN NOTED SCANT BRIGHT RED BLEEDING ON THE PAD AT THIS TIME.
--- NOTE | 2025-01-31 06:34 | PC.NURSE ---
0634- THIS RN WAS CONTACTED BY BLOOD BANK AT THIS TIME NOTIFYING OF 1 UNIT PRBC READY FOR PATIENT. THIS NURSE NOTIFIED BLOOD BANK AT THIS TIME THAT THE DOCTOR STOPPED THE ORDER FOR BLOOD AT THIS TIME AND WILL BE REEVALUATING THE ORDER AFTER THE 8AM HEMAGRAM.
[2025-01-31 08:32] LABS: Hematocrit 22.8 % (36-47); Hemoglobin 7.70 g/dL (11.27-16.99); Mean Corpuscular HGB Conc 33.8 g/dL (30-55); Mean Corpuscular Hemoglobin 29.2 pg (27-33); Mean Corpuscular Volume 86.4 fl (85-98); Nucleated Red Blood Cells % 0 %; Platelet Count 180 10^3/cmm (157-399); Red Blood Count 2.64 10^6/uL (3.85-5.65); White Blood Count 7.09 10^3/uL (3.29-11.43)
[2025-01-31 18:58] LABS: Hematocrit 30.5 % (36-47); Hemoglobin 10.40 g/dL (11.27-16.99); Mean Corpuscular HGB Conc 34.1 g/dL (30-55); Mean Corpuscular Hemoglobin 29.5 pg (27-33); Mean Corpuscular Volume 86.6 fl (85-98); Platelet Count 188 10^3/cmm (157-399); Red Blood Count 3.52 10^6/uL (3.85-5.65); White Blood Count 6.51 10^3/uL (3.29-11.43)
--- OUTSIDE RECORDS SUMMARY | 2025-02-01 12:10 | XMS_ITS | Patient Health Record ---
Author Organization [facility] Address [address] [place] [address] Care Team Providers Care Dietitian Consultant Name Role Phone [facility] Primary Care Provider [facility] Unavailable Unavailable Allergies No Known Allergies Reason [...] Status W/U Status Risk Notes Problem Depression (918656334) Other depression (F32.89) Active confirmed Problem Seizure disorder (959361767) Seizure disorder (G40.909) Active confirmed Plan Of Treatment No Information Insurance Providers Payer Name Payer Address Payer Phone Subscriber Number Group Number Insured Name Patient Relationship to Insured Coverage Start Date Coverage End Date [facility] [address] [place] [id number] [phone] [id number] Bailey Richards Self - patient is the insured Medical (General) History Medical History History ICD Code epilepsy Surgical History Surgery Date(Month/Year) jaw wiring hernia repair Hospitalization History Reason Date(Month/Year) surgical history
--- OUTSIDE RECORDS SUMMARY | 2025-02-01 12:10 | XMS_ITS | Clinical Summary ---
[facility] Organization [facility] Address [address] 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 Last 3 Months Social History Tobacco Use Types Packs/Day Years Used Date Smoking Tobacco: Never Smokeless Tobacco: Never Tobacco Cessation:Counseling Given: Not Answered Alcohol Use Standard Drinks/Week Comments Not Currently 0 (1 standard drink = 0.6 oz pur e alcohol) Comments Yes Sex and Gender Information Value Date Recorded Sex Assigned at Female 12/28/2023 1:34 PM CDT 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 Gender Identity Female 12/28/2023 1:34 PM CDT [...] Description 10/14/2025 12:30 PM CDT Office Visit [facility] - [place] [address] [facility] [address] [place] [address] Guadalupe Porras MD [address] [facility] [address] [place] [address] Health Maintenance Due Date Last [...] B VACCINES Completed 1995, 1995, 1995 Insurance [facility] CHOICE [id number] Care Teams Toilet Attendant Relationship Specialty Start Date End Date Breanna Preciado NP [address] [place] [phone] PCP - General NURSE PRACTITIONER 07/07/17
== END 2025-01-31 19:31 | disposition home or self-care (01) ==
LOC: ER 01-31 04:24 → OBGYN 01-31 05:27 → ER 01-31 13:00 → OBGYN 01-31 18:43 → OPOB 02-01 12:08
PROVIDERS: Emergency Provider Emergency Medicine; PCP Nurse Practitioner Family; Visit Provider Obstetrics & Gynecology
DX: O46.90 Antepartum hemorrhage, unspecified, unspecified trimester (principal); O03.9 Complete or unspecified spontaneous abortion without complication; Z3A.00 Weeks of gestation of pregnancy not specified
CPT/HCPCS: 36415; 36430; 76856; 80048; 84702; 85025; 85027; 86850; 86900; 86920; 93005; 96374; 96375; 99285; G0378; J2270; J2405; J7030; J7121; J9999; P9016

== ENCOUNTER → 2025-02-04 10:49 | Outpatient (BNVA) | payer OTHER, SELFPAY | PROVIDERS: PCP Nurse Practitioner Family; Visit Provider Nurse Practitioner Family | DX: D64.9 Anemia, unspecified (principal) | CPT/HCPCS: 85025 ==